=== PATIENT | male | born 1965 | race Caucasian/White ===

== ENCOUNTER 2016-10-25 10:48 | Emergency (ER) | payer OTHER ==
[2016-10-25 10:56] VITALS: RESP 16
--- NOTE | 2016-10-25 11:24 | EDPHY ---
H & P Stated Complaint: R lower leg swelling x 2 days-pt concerned for dvt Time Seen by Provider: 10/25/16 11:14 HPI/ROS: CHIEF COMPLAINT: Right calf swelling concerns over dvt HISTORY OF PRESENT ILLNESS: 51-year-old male generally healthy no history of coagulopathic disorder states that he injured his right knee few weeks ago has been seen at the [facility] and has been keeping a neoprene like brace on the area that he bought [id number]. This is a when he saw his orthopedic surgeon, name unknown, he was informed that the brace is too tight recommend he remove it. He is out off for 3 days but notes right calf pain and swelling for the past 3 days, concerns over DVT. No paresthesia. No sensory motor deficits. No dyspnea. No chest pain. No prior history of similar. PRIMARY CARE PROVIDER: no primary care provider REVIEW OF SYSTEMS: A ten point review of systems was performed and is negative with the exception of the items mentioned in the HPI PAST MEDICAL & SURGICAL HISTORY: No pertinent medical or surgical history SOCIAL HISTORY: Nonsmoker PHYSICAL EXAM (Prior to examination, patient consented to physical exam, hands were washed and my usual and customary physical exam procedures followed) 1) GENERAL: Well-developed, well-nourished, alert and oriented. Appears to be in no acute distress. 2) HEAD: Normocephalic, atraumatic 3) HEENT: Pupils equal, round, reactive to light bilaterally. Sclera anicteric. 4) NECK: Full range of motion, no meningeal signs. 5) LUNGS: Clear auscultation bilaterally, no wheezes, no rhonchi, no retractions. 6) HEART: Regular rate and rhythm, no murmur, no heave, no gallop. 7) ABDOMEN: No guarding, no rebound, no focal tenderness, 8) MUSCULOSKELETAL: right lower extremity: Asymmetrical soft tissue swelling right calf. Soft compartments. Dorsiflexion plantar flexion distally elicit no pain. DP PT pulses present and brisk. Normal color normal temperature. Brisk capillary refill. No crepitus. No discoloration 9) BACK: no visual or palpable abnormality. 10) SKIN: No rash, no petechiae. 11) Psychiatric: Patient is oriented X 3, there is no agitation. DIFFERENTIAL DIAGNOSIS: in no particular order including but not limited to DVT, arterial occlusion, cellulitis, dependent edema - Personal History Current Tetanus/Diphtheria Vaccine: Unsure Current Tetanus Diphtheria and Acellular Pertussis (TDAP): Unsure - Medical/Surgical History Hx Asthma: No Hx Chronic Respiratory Disease: No Hx Diabetes: No Hx Cardiac Disease: No Hx Renal Disease: No Hx Cirrhosis: No Hx Alcoholism: No Hx HIV/AIDS: No Hx Splenectomy or Spleen Trauma: No Other PMH: meniscus tear R knee - Social History Smoking Status: Former smoker Constitutional: Initial Vital Signs Temperature (C) 36.5 C 10/25/16 10:52 Heart Rate 84 10/25/16 10:52 Respiratory Rate 16 10/25/16 10:52 Blood Pressure 153/103 H 10/25/16 10:52 O2 Sat (%) 95 10/25/16 10:52 O2 Delivery Mode Room Air Allergies/Adverse Reactions: No Known Allergies Allergy (Unverified 12/30/14 18:40) Home Medications: Medication Instructions Recorded NK [No Known Home Meds] 05/01/14 Medical Decision Making - Diagnostics Imaging Results: Imaging Impressions Extremity Venous Study 10/25/16 11:21 Impression: 1. No evidence of deep vein thrombosis in the right leg. 2. Incidental complex Arguello cyst at right popliteal fossa at 4.6 x 3.3 x 0.8 cm , not ruptured. Findings discussed with Darin Pandya PA-C, at 1358 hours, 10/25/2016. Final report concurs with initial preliminary interpretation. Imaging: Discussed imaging studies w/ call center rn Radiologist ED Course/Re-evaluation: 11:24 a.m.: Plan will be ultrasound and re-evaluation, is currently neurovascularly intact. 2:04 p.m.: Re-evaluation, discussed his ultrasound positive for Arguello cyst negative for DVT. He remains with soft compartments neurovascularly intact. Doubt compartment syndrome. Doubt infectious etiology. Doubt septic arthritis. Plan will be discharge. He has already been seen at [facility] recommend he follow up there for further evaluation and management of orthopedic issues. Usual and customary orthopedic precautions and instructions provided Departure - Departure Disposition: Home, Routine, Self-Care Clinical Impression: Arguello's cyst of knee Qualifiers: Laterality: right Qualified Code(s): M71.21 - Synovial cyst of popliteal space [Arguello], right knee Condition: Good Instructions: Bakers Cyst (ED) Additional Instructions: Return to the ER immediately if you experience discoloration, have worsening pain, numbness, tingling, or any other symptoms that concern you. If you received x-rays in the emergency department today, be advised, that ligamentous , tendon, muscular, and other non-bony injury cannot be fully ruled out. Try to keep your affected extremity elevated above the level of your chest, and keep cold packs on the affected area, for the next 48 hours. Referrals: [facility] [Provider Group] - 2-3 days without fail
[2016-10-25 14:17] VITALS: BP 118/95; PULSE 83; TEMP 98.6; O2SAT 92
== END 2016-10-25 14:17 | disposition home or self-care (01) ==
DX: M71.21 Synovial cyst of popliteal space [Baker], right knee (principal); Z87.891 Personal history of nicotine dependence